=== PATIENT | female | born 1960 | race Caucasian/White ===

== ENCOUNTER 2022-01-27 19:03 | Emergency (ER) | payer MEDICARE ==
[~2022-01-27 19:03] MED LIST: ASPIRIN CHEWABL81 MG PO; MOBIC15 MG PO; NORCO 7.5-3251 EACH PO; PAXIL10 MG PO; PRAVACHOL40 MG PO; SYNTHROID75 MCG PO; ZESTRIL20 MG PO
[2022-01-27] MEDS ORDERED: IBUPROFEN600 MG PO (20:41)
[2022-01-27] MEDS ORDERED: NORFLEX 100 MG100 MG PO (20:41)
== END 2022-01-27 21:07 | disposition home or self-care (01) ==
LOC: ER1 19:03
DX: S70.01XA Contusion of right hip, initial encounter (principal); M54.31 Sciatica, right side; Z90.710 Acquired absence of both cervix and uterus; Z88.2 Allergy status to sulfonamides; W01.0XXA Fall on same level from slipping, tripping and stumbling without subsequent striking against object, initial encounter
CPT/HCPCS: 73502; 73552; 96372; 99283; J1885; J2360

== ENCOUNTER → 2022-04-05 | Day surgery (SDC) | payer MEDICARE ==
[~2022-04-05] MED LIST changes: +ENDOCET 10-3251 EACH PO; +GABAPENTIN300 MG PO; +IBUPROFEN600 MG PO; +LEVOTHYROXINE112 MC1 PO; +NORFLEX 100 MG100 MG PO; +SERTRALINE HCL100 MG PO; +ZOLOFT100 MG PO
== END | disposition home or self-care (01) ==
LOC: OR 07:29
DX: Z12.11 Encounter for screening for malignant neoplasm of colon (principal); K62.89 Other specified diseases of anus and rectum; K64.0 First degree hemorrhoids; E78.00 Pure hypercholesterolemia, unspecified; I10 Essential (primary) hypertension; Z80.0 Family history of malignant neoplasm of digestive organs; Z86.010 Personal history of colon polyps; Z88.2 Allergy status to sulfonamides; Z79.899 Other long term (current) drug therapy
CPT/HCPCS: J2704